=== PATIENT | female | born 1995 | race Caucasian/White ===

== ENCOUNTER 2018-04-02 13:35 | Emergency (ER) | payer OTHER ==
[2018-04-02] MEDS ORDERED: methylPREDNISolone SOD SUCC 125 MG/2 ML VIAL IVP ONE (13:36)
[2018-04-02] MEDS ORDERED: RANITIDINE 50 MG/2 ML VIAL IVP ONE (13:36)
[2018-04-02] MEDS ORDERED: EPINEPHrine 1 MG/ML INJ IM ONE (13:36)
--- NOTE | 2018-04-02 13:47 | EDPHY ---
H & P Stated Complaint: Allergic RXN Time Seen by Provider: 04/02/18 13:36 HPI/ROS: CHIEF COMPLAINT: Allergic reaction HISTORY OF PRESENT ILLNESS: 22-year-old female presents with allergic reaction. She was eating a cookie 1 hr ago and had sudden onset of a itchiness feeling in her throat and mouth. Associated with swelling of her eyes and transient dizziness while walking. Symptoms are moderate. No shortness of breath. No prior allergic reaction and no known allergens. REVIEW OF SYSTEMS: complete 10 point ROS reviewed and is negative except for the noted elements in the HPI - Personal History LMP (Females 10-55): 1-7 Days Ago Current Tetanus/Diphtheria Vaccine: Yes Current Tetanus Diphtheria and Acellular Pertussis (TDAP): Yes - Medical/Surgical History Hx Asthma: No Hx Chronic Respiratory Disease: No Hx Diabetes: No Hx Cardiac Disease: No Hx Renal Disease: No Hx Cirrhosis: No Hx Alcoholism: No Hx HIV/AIDS: No Hx Splenectomy or Spleen Trauma: No Other PMH: [place] teeth extraction - Social History Smoking Status: Never smoked - Physical Exam Exam: General Appearance: Alert, pleasant Eyes: Pupils equal and round, periorbital swelling and erythema ENT, Mouth: Mucous membranes moist, no oral swelling Neck: Normal inspection, no stridor Respiratory: Lungs are clear to auscultation, no wheezing Cardiovascular: Regular rate and rhythm Neurological: A&O, nonfocal exam Skin: No hives Extremities: No swelling Psychiatric: Mood and affect normal Constitutional: Initial Vital Signs Temperature (C) 36.9 C 04/02/18 13:36 Heart Rate 105 H 04/02/18 13:36 Respiratory Rate 22 H 04/02/18 13:36 Blood Pressure 156/87 H 04/02/18 13:36 O2 Sat (%) 97 04/02/18 13:36 O2 Delivery Mode Room Air Allergies/Adverse Reactions: No Known Allergies Allergy (Unverified 01/27/16 16:07) Home Medications: Medication Instructions Recorded Adalimumab [Humira] 40 mg SQ Q14D 01/27/16 Norgestimate-Ethinyl Estradiol 1 each PO DAILY 01/27/16 [Tri-Sprintec Tablet] azaTHIOprine [Imuran 50 mg (*)] 50 mg PO DAILY 01/27/16 predniSONE 5 mg PO DAILY 01/27/16 Acetaminophen [Tylenol 325mg (*)] 325 - 650 mg PO Q4 PRN #0 tab 02/10/16 Ondansetron Odt [Zofran Odt 4 mg 4 mg PO Q6 PRN #8 tab 02/10/16 (*)] oxyCODONE/APAP 5/325 [Percocet 1 - 2 tab PO Q4 PRN #15 tab 02/10/16 5/325 (*)] EPINEPHrine [Epipen 0.3 MG] 0.3 mg IM ONCE #2 syr 04/02/18 predniSONE 60 mg PO DAILY #9 tab 04/02/18 Medical Decision Making ED Course/Re-evaluation: This patient presents with anaphylaxis. Epinephrine IM given, followed by Benadryl and Solu-Medrol IV. Will observe. 2:15 p.m.-feels better. No throat or oral itchiness. Periorbital edema decreased. Will continue to observe. 3:00 p.m.-continues to improve. Minimal periorbital edema now. Will discharge home. Instructions for anaphylaxis given. Will follow up with customer advocacy manager. Differential Diagnosis: Differential diagnosis includes though it is not limited to laryngeal edema, bronchospasm, hypotension, angioedema. - Data Points Medications Given: Discontinued Medications Diphenhydramine HCl (Benadryl Injection) 25 mg IVP EDNOW ONE Stop: 04/02/18 13:37 Last Admin: 04/02/18 13:42 Dose: 25 mg Epinephrine HCl (Epinephrine) 0.3 mg IM EDNOW ONE Stop: 04/02/18 13:37 Last Admin: 04/02/18 13:38 Dose: 0.3 mg Methylprednisolone Sodium Succinate (Solu-Medrol) 125 mg IVP EDNOW ONE Stop: 04/02/18 13:37 Last Admin: 04/02/18 13:42 Dose: 125 mg Ranitidine HCl (Zantac) 50 mg IVP EDNOW ONE Stop: 04/02/18 13:37 Last Admin: 04/02/18 13:43 Dose: 50 mg Departure - Departure Disposition: Home, Routine, Self-Care Clinical Impression: Acute anaphylaxis Qualifiers: Encounter type: initial encounter Qualified Code(s): T78.2XXA - Anaphylactic shock, unspecified, initial encounter Condition: Good Instructions: Anaphylaxis (ED) Additional Instructions: Take Zyrtec in the morning and Benadryl at night for 3 days. Return for worsening symptoms or any concerns. Referrals: Jenny Walsh MD [[facility] [place] Primary Care Provider] - As per Instructions Prescriptions: EPINEPHrine [Epipen 0.3 MG] 0.3 mg IM ONCE #2 syr predniSONE 60 mg PO DAILY #9 tab
[2018-04-02 15:17] VITALS: BP 122/60
[2018-04-02] MEDS ORDERED: RANITIDINE 50 MG/2 ML VIAL ONE (15:41)
[2018-04-02] MEDS ORDERED: methylPREDNISolone SOD SUCC 125 MG/2 ML VIAL ONE (15:41)
[2018-04-02] MEDS ORDERED: EPINEPHrine KIT (USE FOR EPIPEN) 1 MG/ML IM ONE (15:41)
== END 2018-04-02 15:17 | disposition home or self-care (01) ==
DX: T78.00XA Anaphylactic reaction due to unspecified food, initial encounter (principal)
CPT/HCPCS: 96374; J0171; J1200; J2780; J2930